=== PATIENT | male | born 1970 | race African-American/Black ===

== ENCOUNTER 2025-01-09 13:19 | Day surgery (SDC) | payer OTHER ==
[~2025-01-09] VITALS: Ht 190.5 cm; Wt 96.6 kg
[~2025-01-09 13:19] MED LIST: ALBU8.5H INH; AMLO1TAB25 PO; BACTDSTA PO; FAMO40TA3 PO; IBUP-1022 PO; INFL10VL IV; LIDOCAINE 2% 100MG/5ML SDV (FOR ANES.) As Ordered ONE; LISI5TAB11 PO; METF500T13 PO; OMEP40CA5 PO; propofoL 200 MG/20 ML VIAL As Ordered ONE
[2025-01-09 15:05] VITALS: BP 121/80; TEMP 98.8; O2SAT 96
== END 2025-01-09 15:12 | disposition home or self-care (01) ==
LOC: M OPP 13:19
PROVIDERS: ATTEND Internal Medicine Gastroenterology
DX: K29.50 Unspecified chronic gastritis without bleeding (principal); K44.9 Diaphragmatic hernia without obstruction or gangrene; R12 Heartburn; R06.6 Hiccough; Z79.84 Long term (current) use of oral hypoglycemic drugs; Z79.899 Other long term (current) drug therapy; F17.210 Nicotine dependence, cigarettes, uncomplicated